=== PATIENT | male | born 1935 | race Hispanic/Latino ===

== ENCOUNTER 2018-03-24 12:44 | Inpatient (IN) | payer MEDICARE ==
[~2018-03-24] VITALS: Ht 165.1 cm; Wt 83.9 kg
[2018-03-24] MEDS ORDERED: HYDROCORTISONE 2.5% CREAM 30GM TUBE TOP ONE (14:00)
[2018-03-24] MEDS ORDERED: SODIUM CHLORIDE 0.9% 1000ML 1,000 ML IV ONE (14:00)
[2018-03-24] MEDS ORDERED: DEXAMETHASONE SOD PHOS 10 MG/1 ML VIAL IV ONE (14:15)
[2018-03-24 14:24] LABS: BASOPHILS % 0.3 % (0.0-1.0); EOSINOPHILS % 0.5 % (0.0-6.0); HEMATOCRIT 38.4 % (38.2-49.6); HEMOGLOBIN 13.3 g/dL (14.0-18.0); LYMPHOCYTES # (AUTO) 1.2 (1.0-3.2); LYMPHOCYTES % 13.8 % (18.0-39.1); MEAN CORPUSCULAR HEMOGLOBIN 33.3 pg (28-32); MEAN CORPUSCULAR HGB CONC 34.6 g/dL (31-35); MONOCYTES # (AUTO) 0.7 (0.2-0.8); NEUTROPHILS # (AUTO) 6.7 (2.1-6.9); NEUTROPHILS % 76.9 % (38.7-80.0); PLATELET COUNT 127 x10e3/uL (140-360); RED CELL DISTRIBUTION WIDTH 13.1 % (11.7-14.4)
[2018-03-24 14:26] LABS: CLARITY,URINE SL CLOUDY (CLEAR); COLOR,URINE YELLOW (YELLOW); KETONES,URINE NEGATIVE (NEGATIVE); LEUKOCYTE ESTERASE ,URINE NEGATIVE (NEGATIVE); NITRITE,URINE NEGATIVE (NEGATIVE); PROTEIN,URINE DIPSTICK NEGATIVE (NEGATIVE); URINE UROBILINOGEN 0.2 mg/dL (0.2 - 1)
[2018-03-24 14:27] LABS: BILIRUBIN,URINE NEGATIVE (NEGATIVE)
[2018-03-24 14:38] LABS: ALBUMIN 3.6 g/dL (3.5-5.0); ALBUMIN/GLOBULIN RATIO 1.2 (0.8-2.0); ANION GAP 13.2 mmol/L (8-16); CALCIUM 8.8 mg/dL (8.4-10.2); CREATININE, SERUM 1.76 mg/dL (0.72-1.25)
[2018-03-24 14:45] LABS: POTASSIUM 5.2 mmol/L (3.5-5.1)
[2018-03-24 14:45] LABS: EPITHELIAL CELLS,URINE RARE /LPF
[2018-03-24] MEDS ORDERED: LIDOCAINE JELLY 2% 10ML URO-JET ONE (16:08)
[2018-03-24] MEDS ORDERED: LIDOCAINE JELLY 2% 10ML URO-JET TOP ONE (16:15)
[2018-03-24] MEDS ORDERED: SODIUM CHLORIDE FLUSH 10 ML SYR INJ PRN (16:45)
[2018-03-24] MEDS ORDERED: METOCLOPRAMIDE HCL 10 MG/2ML VIAL IV PRN (16:45)
[2018-03-24 18:10] VITALS: BP 132/62
[2018-03-24 18:28] VITALS: BP 132/62
[2018-03-24] MEDS: VANCOMYCIN 1GM/NS 250 ML 250 ML IV SCH (18:35)
[2018-03-24 18:38] VITALS: BP 132/62
[2018-03-24] MEDS: CIPROFLOXACIN 400 MG/D5W 200ML 200 ML IV SCH (19:00)
[2018-03-24] MEDS ORDERED: PENTOXIFYLLINE400 MG PO ×2 (19:12→19:22)
[2018-03-24] MEDS ORDERED: LEVOXYL200 MCG PO (19:12)
[2018-03-24] MEDS ORDERED: LISINOPRIL40 MG PO (19:12)
[2018-03-24] MEDS ORDERED: FISH OIL 1,0001 EAC2 PO (19:16)
[2018-03-24] MEDS ORDERED: CENTRUM COMPLE1 EACH PO (19:16)
[2018-03-24] MEDS ORDERED: ASPIR 8181 MG PO (19:16)
[2018-03-24] MEDS ORDERED: AMLODIPINE BES2.5 MG PO (19:16)
[2018-03-24] MEDS ORDERED: ATORVASTATIN CA10 MG PO (19:16)
[2018-03-24] MEDS ORDERED: LORAZEPAM0.5 MG PO (19:16)
[2018-03-24] MEDS ORDERED: CETIRIZINE HCL10 MG PO (19:16)
[2018-03-24] MEDS ORDERED: FAMOTIDINE20 MG PO (19:22)
[2018-03-24] MEDS ORDERED: FINASTERIDE5 MG PO (19:22)
[2018-03-24] MEDS ORDERED: SYMBICORT 16010.2 GM INH (19:22)
[2018-03-24] MEDS ORDERED: MIRTAZAPINE15 MG PO (19:22)
[2018-03-24] MEDS ORDERED: GABAPENTIN100 MG PO (19:22)
[2018-03-24] MEDS ORDERED: TAMSULOSIN HCL0.4 MG PO (19:22)
[2018-03-24 20:00] VITALS: BP 125/58
[2018-03-24 20:25] VITALS: BP 125/58
[2018-03-24] MEDS ORDERED: GABAPENTIN 100 MG CAP PO PRN (20:45)
[2018-03-24] MEDS ORDERED: LORAZEPAM 0.5 MG TAB PO PRN (20:45)
[2018-03-24] MEDS ORDERED: ACETAMINOPHEN 325 MG TAB PO PRN (20:45)
[2018-03-24] MEDS: ATORVASTATIN 10 MG TAB PO SCH (22:36)
[2018-03-24] MEDS: SODIUM CHLORIDE 1 GM TAB PO SCH (22:36)
[2018-03-25] VITALS (7 sets, daily range): BP systolic 114–161; BP diastolic 56–74
[2018-03-25 04:46] LABS: HEMOGLOBIN 12.6 g/dL (14.0-18.0); LYMPHOCYTES # (AUTO) 0.5 (1.0-3.2); LYMPHOCYTES % 10.3 % (18.0-39.1); MEAN CORPUSCULAR HEMOGLOBIN 32.9 pg (28-32); MEAN CORPUSCULAR HGB CONC 34.1 g/dL (31-35); MEAN CORPUSCULAR VOLUME 96.6 fL (81-99); MONOCYTES % 0.8 % (4.4-11.3); NEUTROPHILS # (AUTO) 4.7 (2.1-6.9); NEUTROPHILS % 88.5 % (38.7-80.0); PLATELET COUNT 115 x10e3/uL (140-360); RED BLOOD COUNT 3.83 x10e6/uL (4.3-5.7); RED CELL DISTRIBUTION WIDTH 13.1 % (11.7-14.4)
[2018-03-25] MEDS ORDERED: SODIUM CHLORIDE 0.9% 250ML 250 ML ONE (05:04)
[2018-03-25 05:13] LABS: ANION GAP 13.5 mmol/L (8-16); CALCIUM 8.7 mg/dL (8.4-10.2); CHOL/HDL RATIO 2.1 (3.9-4.7); CREATININE, SERUM 1.32 mg/dL (0.72-1.25); MAGNESIUM 1.9 MG/DL (1.3-2.1); POTASSIUM 5.5 mmol/L (3.5-5.1)
[2018-03-25 05:15] LABS: B-TYPE NATRIURETIC PEPTIDE2 86.2 pg/mL (0-100)
[2018-03-25 05:35] LABS: FREE T4 (FREE THYROXINE) 0.85 ng/dL (0.9-1.8); THYROID STIMULATING HORMONE 0.788 uIU/mL (0.350-4.940)
[2018-03-25] MEDS: VANCOMYCIN 1GM/NS 250 ML 250 ML IV SCH ×2 (05:40→17:12)
[2018-03-25] MEDS: LEVOTHYROXINE SODIUM 100 MCG TAB PO SCH (05:40)
[2018-03-25] MEDS: FAMOTIDINE 20 MG TAB PO SCH (08:31)
[2018-03-25] MEDS: SODIUM CHLORIDE 1 GM TAB PO SCH (08:31)
[2018-03-25] MEDS: TAMSULOSIN HCL 0.4 MG CAP PO SCH (08:31)
[2018-03-25] MEDS: PENTOXIFYLLINE 400 MG TAB CR PO SCH ×2 (08:31→17:12)
[2018-03-25] MEDS: FINASTERIDE 5 MG TAB PO SCH (08:31)
[2018-03-25] MEDS: AMLODIPINE BESYLATE 5 MG TAB PO SCH (08:32)
[2018-03-25] MEDS ORDERED: NON-FORMULARY MEDICATION (Amlodipine Besylate 1 TAB) PO SCH (09:00)
[2018-03-25] MEDS ORDERED: SOD POLYSTYRENE SULFONATE SUSP 15 GM/60 ML BTL PO ONE (09:00)
[2018-03-25] MEDS ORDERED: KETOCONAZOLE 2% CREAM/15 GM TUBE TOP ONE (09:00)
[2018-03-25] MEDS ORDERED: MIRTAZAPINE 15 MG TAB PO SCH (09:00)
[2018-03-25] MEDS ORDERED: LEVOTHYROXINE SODIUM PO SCH (09:00)
[2018-03-25] MEDS ORDERED: SODIUM CHLORIDE 0.9% 1000ML 1,000 ML IV ONE (09:45)
[2018-03-25] MEDS ORDERED: SODIUM CHLORIDE 0.9% 1000ML 1,000 ML ONE (13:57)
[2018-03-25] MEDS: MUPIROCIN 2% OINT 22 GM TUBE TOP SCH (14:41)
[2018-03-25] MEDS ORDERED: MUPIROCIN 2% OINT 22 GM TUBE TOP SCH (17:00)
[2018-03-25] MEDS: CIPROFLOXACIN 400 MG/D5W 200ML 200 ML IV SCH (17:11)
[2018-03-25] MEDS: MIRTAZAPINE 15 MG TAB PO SCH (21:05)
[2018-03-25] MEDS: ATORVASTATIN 10 MG TAB PO SCH (21:05)
[2018-03-26] VITALS (7 sets, daily range): BP systolic 129–176; BP diastolic 60–77
[2018-03-26 04:49] LABS: HEMATOCRIT 35.7 % (38.2-49.6); HEMOGLOBIN 12.5 g/dL (14.0-18.0); LYMPHOCYTES # (AUTO) 0.9 (1.0-3.2); LYMPHOCYTES % 11.3 % (18.0-39.1); MEAN CORPUSCULAR HEMOGLOBIN 33.5 pg (28-32); MEAN CORPUSCULAR VOLUME 95.7 fL (81-99); MONOCYTES # (AUTO) 0.5 (0.2-0.8); MONOCYTES % 6.2 % (4.4-11.3); NEUTROPHILS # (AUTO) 6.5 (2.1-6.9); NEUTROPHILS % 82.2 % (38.7-80.0); PLATELET COUNT 122 x10e3/uL (140-360); RED BLOOD COUNT 3.73 x10e6/uL (4.3-5.7); RED CELL DISTRIBUTION WIDTH 13.2 % (11.7-14.4)
[2018-03-26 05:06] LABS: ANION GAP 12.4 mmol/L (8-16); BLOOD UREA NITROGEN 31 mg/dL (7-26); BUN/CREATININE RATIO 27 (6-25); CALCIUM 8.8 mg/dL (8.4-10.2); CARBON DIOXIDE 23 mmol/L (22-29); CHLORIDE 103 mmol/L (98-107); CREATININE, SERUM 1.13 mg/dL (0.72-1.25); EST GLOMERULAR FILTRATION RATE > 60 ML/MIN (60-); GLUCOSE 140 mg/dL (74-118); MAGNESIUM 1.7 MG/DL (1.3-2.1); POTASSIUM 4.4 mmol/L (3.5-5.1); SODIUM 134 mmol/L (136-145)
[2018-03-26] MEDS: VANCOMYCIN 1GM/NS 250 ML 250 ML IV SCH (05:30)
[2018-03-26] MEDS: LEVOTHYROXINE SODIUM 100 MCG TAB PO SCH (05:59)
[2018-03-26] MEDS: TAMSULOSIN HCL 0.4 MG CAP PO SCH (08:19)
[2018-03-26] MEDS: AMLODIPINE BESYLATE 5 MG TAB PO SCH (08:19)
[2018-03-26] MEDS: FINASTERIDE 5 MG TAB PO SCH (08:19)
[2018-03-26] MEDS: PENTOXIFYLLINE 400 MG TAB CR PO SCH ×2 (08:19→18:28)
[2018-03-26] MEDS: FAMOTIDINE 20 MG TAB PO SCH (08:19)
[2018-03-26] MEDS: HYDROCODONE/APAP 5MG-325MG TAB PO PRN ×2 (08:20→18:00)
[2018-03-26] MEDS: CEFTRIAXONE SOD 1 GM VIAL IV SCH (12:27)
[2018-03-26] MEDS: MUPIROCIN 2% OINT 22 GM TUBE TOP SCH ×2 (12:27→18:29)
[2018-03-26] MEDS ORDERED: BISACODYL 5 MG TAB EC PO PRN (13:30)
[2018-03-26] MEDS: POLYETHYLENE GLYCOL 3350 17 GM PACK PO SCH (18:29)
[2018-03-26] MEDS: DOCUSATE SODIUM 100 MG CAP PO SCH (18:29)
[2018-03-26] MEDS: ATORVASTATIN 10 MG TAB PO SCH (21:05)
[2018-03-26] MEDS: MIRTAZAPINE 15 MG TAB PO SCH (21:05)
[2018-03-27] VITALS (9 sets, daily range): BP systolic 132–180; BP diastolic 60–87
[2018-03-27 03:15] LABS: BASOPHILS % 0.2 % (0.0-1.0); EOSINOPHILS # (AUTO) 0.1 (0.0-0.4); EOSINOPHILS % 0.9 % (0.0-6.0); HEMATOCRIT 37.2 % (38.2-49.6); HEMOGLOBIN 12.7 g/dL (14.0-18.0); LYMPHOCYTES # (AUTO) 1.9 (1.0-3.2); LYMPHOCYTES % 29.3 % (18.0-39.1); MEAN CORPUSCULAR HEMOGLOBIN 32.8 pg (28-32); MEAN CORPUSCULAR HGB CONC 34.1 g/dL (31-35); MEAN CORPUSCULAR VOLUME 96.1 fL (81-99); MONOCYTES # (AUTO) 0.5 (0.2-0.8); MONOCYTES % 8.2 % (4.4-11.3); NEUTROPHILS % 61.1 % (38.7-80.0); PLATELET COUNT 112 x10e3/uL (140-360); RED BLOOD COUNT 3.87 x10e6/uL (4.3-5.7); RED CELL DISTRIBUTION WIDTH 13.2 % (11.7-14.4)
[2018-03-27 03:34] LABS: ANION GAP 10.3 mmol/L (8-16); BLOOD UREA NITROGEN 29 mg/dL (7-26); BUN/CREATININE RATIO 26 (6-25); CALCIUM 8.7 mg/dL (8.4-10.2); CARBON DIOXIDE 26 mmol/L (22-29); CHLORIDE 103 mmol/L (98-107); CREATININE, SERUM 1.12 mg/dL (0.72-1.25); EST GLOMERULAR FILTRATION RATE > 60 ML/MIN (60-); GLUCOSE 113 mg/dL (74-118); MAGNESIUM 1.7 MG/DL (1.3-2.1); POTASSIUM 4.3 mmol/L (3.5-5.1); SODIUM 135 mmol/L (136-145)
[2018-03-27] MEDS: LEVOTHYROXINE SODIUM 100 MCG TAB PO SCH (06:00)
[2018-03-27] MEDS: POLYETHYLENE GLYCOL 3350 17 GM PACK PO SCH ×2 (09:00→17:00)
[2018-03-27] MEDS: DOCUSATE SODIUM 100 MG CAP PO SCH ×2 (09:00→17:00)
[2018-03-27] MEDS: FAMOTIDINE 20 MG TAB PO SCH (09:00)
[2018-03-27] MEDS: TAMSULOSIN HCL 0.4 MG CAP PO SCH (09:00)
[2018-03-27] MEDS: PENTOXIFYLLINE 400 MG TAB CR PO SCH ×2 (09:00→12:05)
[2018-03-27] MEDS: FINASTERIDE 5 MG TAB PO SCH (09:00)
[2018-03-27] MEDS: MUPIROCIN 2% OINT 22 GM TUBE TOP SCH ×2 (09:00→17:00)
[2018-03-27] MEDS: AMLODIPINE BESYLATE 10 MG TAB PO SCH (11:15)
[2018-03-27] MEDS: CEFTRIAXONE SOD 1 GM VIAL IV SCH (11:30)
[2018-03-27] MEDS: HYDROCODONE/APAP 5MG-325MG TAB PO PRN (15:23)
[2018-03-27] MEDS: ATORVASTATIN 10 MG TAB PO SCH (21:34)
[2018-03-27] MEDS: MIRTAZAPINE 15 MG TAB PO SCH (21:34)
[2018-03-28] VITALS (8 sets, daily range): BP systolic 136–181; BP diastolic 65–83
[2018-03-28 05:56] LABS: BASOPHILS % 0.3 % (0.0-1.0); EOSINOPHILS # (AUTO) 0.1 (0.0-0.4); EOSINOPHILS % 1.9 % (0.0-6.0); HEMATOCRIT 39.1 % (38.2-49.6); LYMPHOCYTES # (AUTO) 1.6 (1.0-3.2); LYMPHOCYTES % 27.2 % (18.0-39.1); MEAN CORPUSCULAR HEMOGLOBIN 32.7 pg (28-32); MEAN CORPUSCULAR HGB CONC 33.2 g/dL (31-35); MEAN CORPUSCULAR VOLUME 98.5 fL (81-99); MONOCYTES # (AUTO) 0.5 (0.2-0.8); MONOCYTES % 8.5 % (4.4-11.3); NEUTROPHILS # (AUTO) 3.6 (2.1-6.9); NEUTROPHILS % 61.8 % (38.7-80.0); PLATELET COUNT 120 x10e3/uL (140-360); RED BLOOD COUNT 3.97 x10e6/uL (4.3-5.7); RED CELL DISTRIBUTION WIDTH 13.1 % (11.7-14.4)
[2018-03-28 06:23] LABS: ANION GAP 11.2 mmol/L (8-16); BLOOD UREA NITROGEN 21 mg/dL (7-26); BUN/CREATININE RATIO 21 (6-25); CALCIUM 8.8 mg/dL (8.4-10.2); CARBON DIOXIDE 31 mmol/L (22-29); CHLORIDE 100 mmol/L (98-107); CREATININE, SERUM 0.99 mg/dL (0.72-1.25); EST GLOMERULAR FILTRATION RATE > 60 ML/MIN (60-); GLUCOSE 105 mg/dL (74-118); MAGNESIUM 1.6 MG/DL (1.3-2.1); POTASSIUM 4.2 mmol/L (3.5-5.1); SODIUM 138 mmol/L (136-145)
[2018-03-28] MEDS: LEVOTHYROXINE SODIUM 100 MCG TAB PO SCH (06:32)
[2018-03-28] MEDS ORDERED: AMLODIPINE BESYLATE 10 MG TAB PO SCH (09:00)
[2018-03-28] MEDS: MUPIROCIN 2% OINT 22 GM TUBE TOP SCH ×3 (09:00→21:36)
[2018-03-28] MEDS: FAMOTIDINE 20 MG TAB PO SCH (09:39)
[2018-03-28] MEDS: TAMSULOSIN HCL 0.4 MG CAP PO SCH (09:39)
[2018-03-28] MEDS: AMLODIPINE BESYLATE 10 MG TAB PO SCH (09:39)
[2018-03-28] MEDS: FINASTERIDE 5 MG TAB PO SCH (09:39)
[2018-03-28] MEDS: DOCUSATE SODIUM 100 MG CAP PO SCH ×2 (09:39→17:14)
[2018-03-28] MEDS: POLYETHYLENE GLYCOL 3350 17 GM PACK PO SCH ×2 (09:39→17:14)
[2018-03-28] MEDS: PENTOXIFYLLINE 400 MG TAB CR PO SCH ×2 (09:39→17:14)
[2018-03-28] MEDS: CEFTRIAXONE SOD 1 GM VIAL IV SCH (13:00)
[2018-03-28] MEDS: NIFEDIPINE CR 30 MG TAB PO SCH (17:13)
[2018-03-28] MEDS ORDERED: CEFEPIME HCL 2 GM VIAL IV SCH (18:00)
[2018-03-28] MEDS: CEFEPIME HCL 2 GM VIAL IV SCH (19:58)
[2018-03-28] MEDS ORDERED: VANCOMYCIN 1GM/NS 250 ML 250 ML IV SCH (20:00)
[2018-03-28] MEDS: MIRTAZAPINE 15 MG TAB PO SCH (21:36)
[2018-03-28] MEDS: VANCOMYCIN 1GM/NS 250 ML 250 ML IV SCH (21:36)
[2018-03-28] MEDS: ATORVASTATIN 10 MG TAB PO SCH (21:36)
[2018-03-29] VITALS (7 sets, daily range): BP systolic 120–161; BP diastolic 59–97
--- NOTE | 2018-03-29 01:20 | Consultation ---
DATE OF CONSULTATION: March 29, 2018 REASON FOR CONSULTATION: Cellulitis, infection of the genital area of the penis. HISTORY OF PRESENT ILLNESS: This patient who is an 83-year-old who has history of diabetes mellitus. The patient started to have redness and swelling of the genital area. He went to see his physician, given oral antibiotic without any improvement. Patient was sent to the emergency room. He was given a shot and then oral antibiotic without any improvement. Patient went to see his PCP, and apparently he was getting progressively worse, so patient is being admitted. The patient is complaining of pain in the area. PAST MEDICAL HISTORY: Significant for diabetes mellitus. PAST SURGICAL HISTORY: Denies. ALLERGIES: NKA. SOCIAL HISTORY: There is no smoking, drug abuse, alcohol abuse. FAMILY HISTORY: Unremarkable. REVIEW OF SYSTEMS: HEENT: Negative. PULMONARY: Negative. CARDIAC: Negative. : Negative. SKIN: There is no rash. LABORATORY DATA: Reviewed. His cultures from the penis showed Pseudomonas on March 24. Blood cultures are negative. His white count 5.8, hemoglobin is 13. Sodium 135, potassium 4.3, creatinine 1.2. IMPRESSION: 1. Cellulitis of the penis. Agree with cefepime, agree with vancomycin. Consider urology evaluation. 2. Diabetes mellitus. 3. Will follow with you. Thank you Job#: [id number]
[2018-03-29 04:42] LABS: BASOPHILS % 0.3 % (0.0-1.0); EOSINOPHILS # (AUTO) 0.1 (0.0-0.4); EOSINOPHILS % 1.8 % (0.0-6.0); HEMATOCRIT 37.8 % (38.2-49.6); HEMOGLOBIN 12.7 g/dL (14.0-18.0); LYMPHOCYTES # (AUTO) 1.2 (1.0-3.2); LYMPHOCYTES % 20.4 % (18.0-39.1); MEAN CORPUSCULAR HEMOGLOBIN 32.8 pg (28-32); MEAN CORPUSCULAR HGB CONC 33.6 g/dL (31-35); MEAN CORPUSCULAR VOLUME 97.7 fL (81-99); MONOCYTES # (AUTO) 0.5 (0.2-0.8); MONOCYTES % 7.9 % (4.4-11.3); NEUTROPHILS # (AUTO) 4.2 (2.1-6.9); NEUTROPHILS % 69.3 % (38.7-80.0); PLATELET COUNT 115 x10e3/uL (140-360); RED BLOOD COUNT 3.87 x10e6/uL (4.3-5.7)
[2018-03-29 05:04] LABS: BLOOD UREA NITROGEN 22 mg/dL (7-26); BUN/CREATININE RATIO 24 (6-25); CALCIUM 8.7 mg/dL (8.4-10.2); CARBON DIOXIDE 28 mmol/L (22-29); CHLORIDE 101 mmol/L (98-107); CREATININE, SERUM 0.92 mg/dL (0.72-1.25); EST GLOMERULAR FILTRATION RATE > 60 ML/MIN (60-); GLUCOSE 118 mg/dL (74-118); MAGNESIUM 1.7 MG/DL (1.3-2.1); SODIUM 136 mmol/L (136-145)
[2018-03-29] MEDS: LEVOTHYROXINE SODIUM 100 MCG TAB PO SCH (06:33)
[2018-03-29] MEDS: CEFEPIME HCL 2 GM VIAL IV SCH ×2 (08:00→21:25)
[2018-03-29] MEDS: MUPIROCIN 2% OINT 22 GM TUBE TOP SCH ×2 (09:00→17:00)
[2018-03-29] MEDS: TAMSULOSIN HCL 0.4 MG CAP PO SCH (09:00)
[2018-03-29] MEDS: FAMOTIDINE 20 MG TAB PO SCH (09:00)
[2018-03-29] MEDS: FINASTERIDE 5 MG TAB PO SCH (09:00)
[2018-03-29] MEDS: POLYETHYLENE GLYCOL 3350 17 GM PACK PO SCH ×2 (09:00→17:00)
[2018-03-29] MEDS: PENTOXIFYLLINE 400 MG TAB CR PO SCH ×2 (09:00→17:00)
[2018-03-29] MEDS: DOCUSATE SODIUM 100 MG CAP PO SCH ×2 (09:00→17:00)
[2018-03-29] MEDS: VANCOMYCIN 1GM/NS 250 ML 250 ML IV SCH ×2 (09:00→21:25)
[2018-03-29] MEDS: NIFEDIPINE CR 30 MG TAB PO SCH (09:00)
[2018-03-29] MEDS: MIRTAZAPINE 15 MG TAB PO SCH (21:25)
[2018-03-29] MEDS: ATORVASTATIN 10 MG TAB PO SCH (21:25)
[2018-03-30] MEDS: LEVOTHYROXINE SODIUM 100 MCG TAB PO SCH (05:20)
[2018-03-30 05:21] VITALS: BP 136/64
[2018-03-30 05:21] LABS: BASOPHILS % 0.5 % (0.0-1.0); EOSINOPHILS # (AUTO) 0.1 (0.0-0.4); HEMATOCRIT 38.3 % (38.2-49.6); HEMOGLOBIN 12.8 g/dL (14.0-18.0); LYMPHOCYTES # (AUTO) 1.2 (1.0-3.2); LYMPHOCYTES % 19.6 % (18.0-39.1); MEAN CORPUSCULAR HEMOGLOBIN 32.6 pg (28-32); MEAN CORPUSCULAR HGB CONC 33.4 g/dL (31-35); MEAN CORPUSCULAR VOLUME 97.5 fL (81-99); MONOCYTES # (AUTO) 0.4 (0.2-0.8); MONOCYTES % 7.4 % (4.4-11.3); NEUTROPHILS # (AUTO) 4.2 (2.1-6.9); PLATELET COUNT 111 x10e3/uL (140-360); RED BLOOD COUNT 3.93 x10e6/uL (4.3-5.7); RED CELL DISTRIBUTION WIDTH 12.9 % (11.7-14.4)
[2018-03-30 06:02] LABS: BLOOD UREA NITROGEN 17 mg/dL (7-26); BUN/CREATININE RATIO 15 (6-25); CALCIUM 8.7 mg/dL (8.4-10.2); CARBON DIOXIDE 27 mmol/L (22-29); CHLORIDE 103 mmol/L (98-107); CREATININE, SERUM 1.15 mg/dL (0.72-1.25); EST GLOMERULAR FILTRATION RATE > 60 ML/MIN (60-); GLUCOSE 137 mg/dL (74-118); MAGNESIUM 1.9 MG/DL (1.3-2.1); SODIUM 138 mmol/L (136-145)
[2018-03-30] MEDS: CEFEPIME HCL 2 GM VIAL IV SCH ×2 (08:00→21:04)
[2018-03-30 08:11] VITALS: BP 132/68
[2018-03-30] MEDS: PENTOXIFYLLINE 400 MG TAB CR PO SCH ×2 (09:00→17:00)
[2018-03-30] MEDS: FAMOTIDINE 20 MG TAB PO SCH (09:00)
[2018-03-30] MEDS: TAMSULOSIN HCL 0.4 MG CAP PO SCH (09:00)
[2018-03-30] MEDS: FINASTERIDE 5 MG TAB PO SCH (09:00)
[2018-03-30] MEDS: NIFEDIPINE CR 30 MG TAB PO SCH (09:00)
[2018-03-30] MEDS: DOCUSATE SODIUM 100 MG CAP PO SCH ×2 (09:00→17:00)
[2018-03-30] MEDS: MUPIROCIN 2% OINT 22 GM TUBE TOP SCH ×2 (09:00→17:00)
[2018-03-30] MEDS: POLYETHYLENE GLYCOL 3350 17 GM PACK PO SCH ×2 (09:00→17:00)
[2018-03-30] MEDS: CIPROFLOXACIN 400 MG/D5W 200ML 200 ML IV SCH (11:30)
--- NOTE | 2018-03-30 11:56 | Progress Note ---
DATE: March 30, 2018 Mr. Enamorado is feeling slightly better; however, the penis is still quite edematous and quite erythematous. There is small area of ulcer noted at the tip of the penis. The urine is showing Pseudomonas aeruginosa, which was resistant only to Azactam. His blood pressures are negative. His white count is 5.98 and hemoglobin is 12.8. His sodium 138, potassium 4.0, creatinine of 1.15. He is currently on Cefepime 2 g q.12 and vancomycin. PHYSICAL EXAMINATION GENERAL: He is currently alert, oriented, does not seem to be in acute distress. VITALS: Stable. Currently afebrile. HEENT: Not icteric. NECK: Supple. CHEST: Clear. COR: Normal. ABDOMEN: Soft. Bowel sounds present. No tenderness. EXTREMITIES: No edema. SKIN: The penis with still edema and erythema. IMPRESSION 1. Penis cellulitis, very slow progress, growing Pseudomonas. Continue with Cefepime. Will add Cipro. I am going to reduce the vancomycin dose to 1 g q.24 hours. He probably would need to be on IV antibiotic for 2 to 3 weeks. Depending on his clinical progress, I think an LTAC would be appropriate. 2. Acute tubular necrosis/chronic kidney disease. Will keep an eye on it. Will follow with you. Job#: [id number] TARUN
[2018-03-30 12:00] VITALS: BP 139/63
[2018-03-30] MEDS ORDERED: SODIUM CHLORIDE 0.9% 250ML 250 ML ONE (12:18)
[2018-03-30 16:14] VITALS: BP 154/67
[2018-03-30 20:02] VITALS: BP 155/73
[2018-03-30] MEDS: MIRTAZAPINE 15 MG TAB PO SCH (22:19)
[2018-03-30] MEDS: ATORVASTATIN 10 MG TAB PO SCH (22:19)
[2018-03-30] MEDS: VANCOMYCIN 1GM/NS 250 ML 250 ML IV SCH (22:38)
[2018-03-30 23:50] VITALS: BP 148/65
[2018-03-31] MEDS: CIPROFLOXACIN 400 MG/D5W 200ML 200 ML IV SCH ×3 (00:17→22:51)
[2018-03-31 05:05] LABS: BASOPHILS % 0.5 % (0.0-1.0); EOSINOPHILS # (AUTO) 0.1 (0.0-0.4); EOSINOPHILS % 1.6 % (0.0-6.0); HEMATOCRIT 37.5 % (38.2-49.6); HEMOGLOBIN 12.3 g/dL (14.0-18.0); LYMPHOCYTES % 18.6 % (18.0-39.1); MEAN CORPUSCULAR HEMOGLOBIN 32.2 pg (28-32); MEAN CORPUSCULAR HGB CONC 32.8 g/dL (31-35); MEAN CORPUSCULAR VOLUME 98.2 fL (81-99); MONOCYTES # (AUTO) 0.5 (0.2-0.8); MONOCYTES % 8.9 % (4.4-11.3); NEUTROPHILS # (AUTO) 3.9 (2.1-6.9); NEUTROPHILS % 69.9 % (38.7-80.0); PLATELET COUNT 120 x10e3/uL (140-360); RED BLOOD COUNT 3.82 x10e6/uL (4.3-5.7); RED CELL DISTRIBUTION WIDTH 13.1 % (11.7-14.4)
[2018-03-31] MEDS: LEVOTHYROXINE SODIUM 100 MCG TAB PO SCH (05:26)
[2018-03-31 05:27] LABS: BLOOD UREA NITROGEN 18 mg/dL (7-26); BUN/CREATININE RATIO 20 (6-25); CALCIUM 8.5 mg/dL (8.4-10.2); CARBON DIOXIDE 26 mmol/L (22-29); CHLORIDE 104 mmol/L (98-107); CREATININE, SERUM 0.92 mg/dL (0.72-1.25); EST GLOMERULAR FILTRATION RATE > 60 ML/MIN (60-); GLUCOSE 120 mg/dL (74-118); MAGNESIUM 1.7 MG/DL (1.3-2.1); SODIUM 138 mmol/L (136-145)
[2018-03-31 06:11] VITALS: BP 161/72
[2018-03-31 08:00] VITALS: BP 144/70
[2018-03-31] MEDS: CEFEPIME HCL 2 GM VIAL IV SCH ×2 (08:00→20:22)
[2018-03-31] MEDS: MUPIROCIN 2% OINT 22 GM TUBE TOP SCH ×2 (09:23→17:00)
[2018-03-31] MEDS: FAMOTIDINE 20 MG TAB PO SCH (09:52)
[2018-03-31] MEDS: TAMSULOSIN HCL 0.4 MG CAP PO SCH (09:52)
[2018-03-31] MEDS: DOCUSATE SODIUM 100 MG CAP PO SCH ×2 (09:52→17:10)
[2018-03-31] MEDS: FINASTERIDE 5 MG TAB PO SCH (09:52)
[2018-03-31] MEDS: POLYETHYLENE GLYCOL 3350 17 GM PACK PO SCH ×2 (09:52→17:00)
[2018-03-31] MEDS: PENTOXIFYLLINE 400 MG TAB CR PO SCH ×2 (09:52→17:00)
[2018-03-31] MEDS: NIFEDIPINE CR 30 MG TAB PO SCH (09:53)
[2018-03-31 12:00] VITALS: BP 142/69
[2018-03-31 16:00] VITALS: BP 154/73
[2018-03-31 20:00] VITALS: BP 132/60
[2018-03-31] MEDS: MIRTAZAPINE 15 MG TAB PO SCH (20:22)
[2018-03-31] MEDS: ATORVASTATIN 10 MG TAB PO SCH (20:22)
[2018-03-31] MEDS: VANCOMYCIN 1GM/NS 250 ML 250 ML IV SCH (20:22)
[2018-04-01] VITALS: BP 152/67
[2018-04-01 04:00] VITALS: BP 136/65
[2018-04-01] MEDS: LEVOTHYROXINE SODIUM 100 MCG TAB PO SCH (06:04)
[2018-04-01 08:00] VITALS: BP 146/67
[2018-04-01] MEDS: MUPIROCIN 2% OINT 22 GM TUBE TOP SCH ×2 (09:04→18:16)
[2018-04-01] MEDS: DOCUSATE SODIUM 100 MG CAP PO SCH ×2 (09:04→18:16)
[2018-04-01] MEDS: FINASTERIDE 5 MG TAB PO SCH (09:04)
[2018-04-01] MEDS: PENTOXIFYLLINE 400 MG TAB CR PO SCH ×2 (09:04→18:16)
[2018-04-01] MEDS: TAMSULOSIN HCL 0.4 MG CAP PO SCH (09:04)
[2018-04-01] MEDS: FAMOTIDINE 20 MG TAB PO SCH (09:04)
[2018-04-01] MEDS: POLYETHYLENE GLYCOL 3350 17 GM PACK PO SCH ×2 (09:04→18:16)
[2018-04-01] MEDS: CEFEPIME HCL 2 GM VIAL IV SCH (09:04)
[2018-04-01] MEDS: NIFEDIPINE CR 30 MG TAB PO SCH (09:05)
[2018-04-01] MEDS: CIPROFLOXACIN 400 MG/D5W 200ML 200 ML IV SCH (11:30)
[2018-04-01 12:00] VITALS: BP 144/67
[2018-04-01 16:00] VITALS: BP 127/58
--- NOTE | 2018-04-06 11:30 | Discharge Summary ---
ADMITTING DIAGNOSES 1. Erosive balanitis plus penile cellulitis. 2. BPH. 3. Hypertension. 4. Hyperlipidemia. 5. Hyperkalemia. 6. Hypothyroidism. 7. Hyponatremia. DISCHARGE DIAGNOSES 1. Erosive balanitis plus penile cellulitis. 2. BPH. 3. Hypertension. 4. Hyperlipidemia. 5. Hyperkalemia. 6. Hypothyroidism. 7. Hyponatremia. HISTORY: Patient has a history of hypertension, hyperlipidemia, BPH, hypothyroidism, anxiety, intermittent claudication, neuropathy, and seasonal allergies. Surgical history of left neck tumor, right lower extremity stent in 2010, and left carotid endarterectomy. HOSPITAL COURSE: An 83-year-old male who complains of penile foreskin irritation that began 3 weeks ago. He describes it as a rash that has spread over time. He denies fever, dysuria and drainage. Patient admits to changing body wash about 3 weeks ago. He showers daily and dries the area as well. On admission, patient was started on Cipro and vancomycin. Urology consulted who ordered a Eduardo. ID was also consulted. Patient started on home medications for all other medical issues. Blood cultures were negative. Urine culture was negative. HSV was negative. Wound culture showed Pseudomonas putida. Per ID, patient was switched to IV cefepime 2 g daily. Patient was initially trying to get into LTAC which was denied and then [facility] was pending. Nurses decided to discharge the patient without a discharge order and did not inform me of discharge. So, patient was discharged to [facility] where antibiotics had to be changed the next day via getting hold of Dr. Cazares's FASHION JOURNALIST at the alf. At time of discharge, vital signs were stable. Patient afebrile. Family and patient understood plan prior to discharge and agreed to transfer. Dictated by Lenka Castle NP AVTAR CAZARES MD Job#: [id number] CF
== END 2018-04-01 20:19 | DRG 727 ==
LOC: ER 12:44 → ERHOLD 17:01 → MED/SURG2 17:52
PROVIDERS: ADMIT Internal Medicine; ATTEND Internal Medicine
DX: N48.1 Balanitis (principal); N17.0 Acute kidney failure with tubular necrosis; E87.1 Hypo-osmolality and hyponatremia; E86.0 Dehydration; N40.0 Benign prostatic hyperplasia without lower urinary tract symptoms; E03.9 Hypothyroidism, unspecified; E78.5 Hyperlipidemia, unspecified; E87.5 Hyperkalemia; F41.9 Anxiety disorder, unspecified; E11.42 Type 2 diabetes mellitus with diabetic polyneuropathy; Z79.4 Long term (current) use of insulin; B96.5 Pseudomonas (aeruginosa) (mallei) (pseudomallei) as the cause of diseases classified elsewhere; Z16.29 Resistance to other single specified antibiotic; E11.22 Type 2 diabetes mellitus with diabetic chronic kidney disease; I12.9 Hypertensive chronic kidney disease with stage 1 through stage 4 chronic kidney disease, or unspecified chronic kidney disease; N18.9 Chronic kidney disease, unspecified
CPT/HCPCS: 36415; 51700; 80048; 80053; 80061; 80202; 81001; 82948; 83036; 83735; 83880; 84439; 84443; 85025; 87040; 87071; 87086; 87186; 87205; 87252; 99285; J0692; J0696; J1100; J3370; J7030; J7050

== ENCOUNTER 2018-08-23 18:48 | Observation (INO) | payer MEDICARE, OTHER ==
[~2018-08-23] VITALS: Ht 167.6 cm; Wt 82.6 kg
[~2018-08-23 18:48] MED LIST: AMLODIPINE BES2.5 MG PO; ASPIR 8181 MG PO; ATORVASTATIN CA10 MG PO; CENTRUM COMPLE1 EACH PO; CETIRIZINE HCL10 MG PO; FAMOTIDINE20 MG PO; FINASTERIDE5 MG PO; FISH OIL 1,0001 EAC2 PO; GABAPENTIN100 MG PO; LEVOXYL200 MCG PO; LISINOPRIL40 MG PO; LORAZEPAM0.5 MG PO; MIRTAZAPINE15 MG PO; PENTOXIFYLLINE400 MG PO; SYMBICORT 16010.2 GM INH; TAMSULOSIN HCL0.4 MG PO
--- OUTSIDE RECORDS SUMMARY | 2018-08-23 18:51 | XMS REPORT | Continuity of Care Document ---
Author Author [facility] Interface Address Unknown Phone Unavailable Problems Problem Status Onset Date Classification Date Reported Comments Source Back pain Active Problem 03/16/2018 Bertrand Bonds Medications Medication Details Route Status Patient Instructions Ordering Provider Order Date Source Cyclobenzaprine HCl 1 tablet as needed Orally Active 10 MG Orally qhs Judi 12/07/2017 Bertrand Bonds Aspirin 1 tablet Orally Active 81 MG Orally Once a day Judi Bertrand Bonds Centrum Silver Ultra Mens as directed Orally Active - Orally Judi Bertrand Bonds Tamsulosin HCl 1 capsule Orally Active 0.4 MG Orally Once a day Judi Bertrand Bonds Symbicort 2 puffs Inhalation Active 160-4.5 MCG/ACT Inhalation Twice a day Judi Bertrand Bonds Lisinopril 1 tablet Orally Active 40 MG Orally Once a day Judi Bertrand Bonds Atorvastatin Calcium 1 tablet Orally Active 10 MG Orally Once a day Judi Bertrand Bonds Pentoxifylline 1 tablet with meals Orally Active 400 MG Orally Twice a day Judi Bertrand Bonds Clopidogrel Bisulfate 1 tablet Orally Active 75 MG Orally Once a day Judi Bertrand Bonds Breo Ellipta 1 puff Inhalation Active 100-25 MCG/INH Inhalation Once a day Judi Bertrand Bonds ProAir HFA 2 puffs as needed Inhalation Active 108 (90 Base) MCG/ACT Inhalation every 4 hrs Judi Bertrand Bonds Baclofen 1 tablet with food or milk Orally Active 10 MG Orally Three times a day Judi Bertrand Bonds Gabapentin 1 tablet Orally Active 100 MG Orally 1 tab in am, 1 in pm and 2 tabs qhs Judi Bertrand Bonds Cetirizine HCl 1 tablet Orally Active 10 MG Orally Once a day Judi Bertrand Bonds Amlodipine Besylate 1 tablet Orally Active 2.5 MG Orally Once a day Judi Bertrand Bonds Famotidine 1 tablet Orally Active 40 MG Orally Once a day Judi Bertrand Bonds Finasteride 1 tablet Orally Active 5 MG Orally Once a day Judi Bertrand Bonds Acetaminophen-Codeine 1 tablet as needed Orally Active 300-30 MG Orally every 6 hrs Judi Bertrand Bonds Allergies, Adverse Reactions, Alerts Substance Category Reaction Severity Reaction type Status Date Reported Comments Source penicillin Adverse Reaction anaphylaxis Adverse Reaction Active 12/07/2017 Bertrand Bonds Immunizations Immunization Date Given Site Status Last Updated Comments Source Results Order Name Results Value Reference Range Date Interpretation Comments Source Vital Signs Vital Sign Value Date Comments Source Weight 178 12/07/2017 Bertrand Bonds Height 64 12/07/2017 Bertrand Bonds Temperature Oral (F) 97.3 F 12/07/2017 Bertrand Bonds Heart Rate 76 12/07/2017 Bertrand Bonds Diastolic (mm Hg) 60 12/07/2017 Bertrand Bonds Systolic (mm Hg) 122 12/07/2017 Bertrand Bonds Encounters Location Location Details Encounter Type Encounter Number Reason For Visit Attending Provider ADM Date DC Date Status Source Procedures Procedure Code Date Perfomer Comments Source
[2018-08-23 20:05] LABS: BASOPHILS % 0.3 % (0.0-1.0); EOSINOPHILS # (AUTO) 0.1 (0.0-0.4); HEMATOCRIT 27.1 % (38.2-49.6); HEMOGLOBIN 8.8 g/dL (14.0-18.0); LYMPHOCYTES # (AUTO) 1.2 (1.0-3.2); LYMPHOCYTES % 16.7 % (18.0-39.1); MEAN CORPUSCULAR HEMOGLOBIN 32.5 pg (28-32); MEAN CORPUSCULAR HGB CONC 32.5 g/dL (31-35); MONOCYTES # (AUTO) 0.5 (0.2-0.8); MONOCYTES % 6.8 % (4.4-11.3); NEUTROPHILS % 72.3 % (38.7-80.0); PLATELET COUNT 333 x10e3/uL (140-360); RED BLOOD COUNT 2.71 x10e6/uL (4.3-5.7); RED CELL DISTRIBUTION WIDTH 14.3 % (11.7-14.4)
[2018-08-23 20:15] LABS: INR 1.07; PROTHROMBIN TIME 14.9 seconds (11.9-14.5)
[2018-08-23 20:16] LABS: PARTIAL THROMBOPLASTIN TIME 37.7 seconds (23.8-35.5)
[2018-08-23 20:25] LABS: ALANINE AMINOTRANSFERASE 63 IU/L (0-55); ALBUMIN 3.1 g/dL (3.5-5.0); ALBUMIN/GLOBULIN RATIO 0.8 (0.8-2.0); ALKALINE PHOSPHATASE 224 IU/L (40-150); ANION GAP 14.5 mmol/L (8-16); BLOOD UREA NITROGEN 20 mg/dL (7-26); BUN/CREATININE RATIO 19 (6-25); CALCIUM 9.2 mg/dL (8.4-10.2); CARBON DIOXIDE 25 mmol/L (22-29); CHLORIDE 96 mmol/L (98-107); CREATININE, SERUM 1.06 mg/dL (0.72-1.25); EST GLOMERULAR FILTRATION RATE > 60 ML/MIN (60-); GLUCOSE 117 mg/dL (74-118); POTASSIUM 4.5 mmol/L (3.5-5.1); SODIUM 131 mmol/L (136-145)
[2018-08-23 21:11] LABS: HYPOCHROMASIA MODERATE; LYMPHOCYTES % (MANUAL) 25 % (19-48); MONOCYTES % (MANUAL) 4 % (3.4-9.0); NEUTROPHILS % (MANUAL) 69 % (40-74); PLATELET MORPHOLOGY COMMENT NORMAL; PROMYELOCYTES % (MANUAL) 1 % (0-0); RBC MORPHOLOGY COMMENT NORMAL
[2018-08-23 21:12] LABS: PLATELET ESTIMATE ADEQUATE
[2018-08-23] MEDS ORDERED: KETOROLAC TROMETHAMINE 60 MG/2 ML VIAL IM ONE (21:30)
[2018-08-23] MEDS ORDERED: HYDROCODONE/APAP 10MG-325MG TAB PO ONE (21:30)
[2018-08-23] MEDS ORDERED: ONDANSETRON HCL INJ 2 MG/ML VIAL IV PRN (21:45)
[2018-08-23] MEDS ORDERED: SODIUM CHLORIDE FLUSH 10 ML SYR INJ PRN (21:45)
[2018-08-23] MEDS ORDERED: LEVOTHYROXINE25 MCG PO (23:25)
[2018-08-23] MEDS ORDERED: FERROUS SULFAT325 M1 PO (23:25)
[2018-08-23] MEDS ORDERED: ADVAIR HFA 115-12 GM INH (23:25)
[2018-08-23] MEDS ORDERED: ENOXAPARIN40 MG/0.4 SC (23:25)
[2018-08-23] MEDS ORDERED: PLAVIX75 MG PO (23:25)
[2018-08-23] MEDS ORDERED: LORAZEPAM 0.5 MG TAB PO PRN (23:30)
[2018-08-23 23:35] LABS: FERRITIN 586.12 ng/mL (21.81-274.66)
[2018-08-24 01:30] VITALS: BP 136/63
[2018-08-24 01:39] VITALS: BP 136/63
[2018-08-24 04:00] VITALS: BP 131/79
[2018-08-24] MEDS ORDERED: LEVOTHYROXINE SODIUM 25 MCG TABLET PO SCH (06:00)
[2018-08-24 06:42] LABS: BASOPHILS % 0.3 % (0.0-1.0); EOSINOPHILS # (AUTO) 0.1 (0.0-0.4); EOSINOPHILS % 1.5 % (0.0-6.0); HEMATOCRIT 24.4 % (38.2-49.6); LYMPHOCYTES # (AUTO) 1.1 (1.0-3.2); LYMPHOCYTES % 17.6 % (18.0-39.1); MEAN CORPUSCULAR HEMOGLOBIN 32.4 pg (28-32); MEAN CORPUSCULAR HGB CONC 32.8 g/dL (31-35); MEAN CORPUSCULAR VOLUME 98.8 fL (81-99); MONOCYTES # (AUTO) 0.5 (0.2-0.8); MONOCYTES % 7.7 % (4.4-11.3); NEUTROPHILS # (AUTO) 4.2 (2.1-6.9); NEUTROPHILS % 70.4 % (38.7-80.0); PLATELET COUNT 307 x10e3/uL (140-360); RED BLOOD COUNT 2.47 x10e6/uL (4.3-5.7); RED CELL DISTRIBUTION WIDTH 14.3 % (11.7-14.4)
[2018-08-24 06:58] LABS: AMYLASE 88 U/L (25-125); LIPASE 26 U/L (8-78)
[2018-08-24 08:30] VITALS: BP 110/53
[2018-08-24 09:00] VITALS: BP 110/53
[2018-08-24] MEDS ORDERED: NON-FORMULARY MEDICATION (Amlodipine Besylate 1 TAB) PO SCH (09:00)
[2018-08-24] MEDS ORDERED: MULTIVITAMINS/MINERALS TAB PO SCH (09:00)
[2018-08-24] MEDS ORDERED: AMLODIPINE BESYLATE 5 MG TAB PO SCH (09:00)
[2018-08-24] MEDS ORDERED: LORATADINE 10 MG TAB PO SCH (09:00)
[2018-08-24] MEDS ORDERED: FINASTERIDE 5 MG TAB PO SCH (09:00)
[2018-08-24] MEDS ORDERED: TAMSULOSIN HCL 0.4 MG CAP PO SCH (09:00)
[2018-08-24] MEDS: FERROUS SULFATE 325 MG TAB PO SCH ×2 (09:57→17:46)
[2018-08-24] MEDS: FAMOTIDINE 20 MG TAB PO SCH ×2 (09:58→17:46)
[2018-08-24] MEDS: PENTOXIFYLLINE 400 MG TAB CR PO SCH ×2 (09:58→17:46)
[2018-08-24] MEDS: OMEGA 3 POLYUNSAT FATTY ACIDS 1000 MG SOFTGEL PO SCH ×2 (09:58→17:46)
--- NOTE | 2018-08-24 10:39 | NUR ---
CASE MANAGEMENT INITIAL ASSESSMENT Instrument Technician to bedside to discuss plan of care with patient/family. CM/SW role and care transitions discussed. Anticipated discharge plan discussed along with duration of care. CM/SW discussed patients right to make decisions in care. CM/SW work hours given. Patient lives: WITH FAMILY IN 1 STORY HOUSE Admit/Transfer: VIA ED FROM HOME POA/Emergency contact: BRENTON MAZARIEGOS [phone] OR JALEN [phone] Current/Previous Home Health: [facility] HAS SET UP TO VISIT AT HOME WHEN NOT AT [facility] PCP/Follow-up Care: ARNALDO DEUARDO [phone] Current/Previous DME: [facility] AND [facility] IN ONE AT HOME Other Services: CURRENTLY AT [facility] AND WILL RETURN THERE Employment Status: DISABLED Areas of Concerns: [employer] Referral Needs: SEND CLINICALS PRIOR TO RETURN Education Needs: NONE IMM/KIRKLAND given and signed (if applicable): KIRKLAND Goal for discharge: RETURN TO [facility] CM/SW left business card at the bedside with contact information. Name and number was also written on the patients whiteboard. Patient verbalized understanding of discussion. CM will follow-up with ongoing discharge and transition of care needs.
[2018-08-24 12:40] VITALS: BP 122/60
--- NOTE | 2018-08-24 17:35 | History and Physical ---
SHORTSTAY SUMMARY PRIMARY CARE PROVIDER: Dr. Juan Antonio Mace. He has been under our care at the [facility] after a recent knee replacement. ADMITTING DIAGNOSES 1. Anemia. 2. Hypertension complicated by coronary artery disease. 3. Recent left total knee replacement. DISCHARGE DIAGNOSES 1. Anemia being stable with no evidence of active bleeding. 2. Hypertension complicated by coronary artery disease. 3. Recent left total knee replacement. Patient discharged back to long-term. BRIEF HISTORY: Mr. Enamorado is an 83-year-old gentleman who was sent from the long-term because he was bleeding from a Lovenox injection site. The patient had a left total knee replacement a couple of weeks ago, was admitted to the [facility]. He was on aspirin, Plavix and was started on Lovenox for DVT prophylaxis. He had a Lovenox injection and was bleeding from the site for several hours and was sent to the ER for evaluation. He was found in the ER to have a hemoglobin of 8.8. It was noted that his last hemoglobin was 8.4 a couple of days ago at the long-term. We decided to admit the patient overnight, monitor his hemoglobin, hematocrit and the bleeding site and probably send back to long-term in the a.m. REVIEW OF SYSTEMS: He denies chest pain or palpitations. He denies shortness of breath. He denies abdominal pain, nausea, vomiting or melena. He denies dysuria or flank pain. He rash or pruritus. He is recovering well from his left total knee replacement. PAST MEDICAL HISTORY: Significant for hypertension, coronary artery disease with previous [place], hyperlipidemia, benign prostatic hypertrophy, GERD. He denies any history of diabetes. He has a history of a recent left total knee replacement. He has had previous coronary stents and a carotid endarterectomy. MEDICATIONS: His regular medications include Norvasc 2.5 mg daily, Zyrtec 10 mg daily, Pepcid 40 mg twice daily before meals, iron sulfate 325 mg 3 times a day, Proscar 5 mg daily, levothyroxine 25 mcg daily, lorazepam as needed, multivitamin daily, omega fish oil daily, pentoxifylline 400 mg twice daily, Flomax 0.4 mg daily, lisinopril 40 mg daily, Advair Diskus twice daily, Plavix 75 mg daily, Lipitor 10 mg at bedtime, and aspirin 81 mg daily. ALLERGIES: PATIENT HAS A STATED ALLERGY TO PROMETHAZINE AND PENICILLIN. FAMILY HISTORY: Significant for hypertension. SOCIAL HISTORY: The patient is , speaks only [place]. He does not smoke, drink, or use illegal drugs. Currently living in a half-way facility after a left total knee replacement. PHYSICAL EXAM PSYCHIATRIC: He is alert and oriented x3 with normal mood and affect. CONSTITUTIONAL: He has a normal body habitus, is in no acute distress. VITAL SIGNS: Blood pressure 122/60, pulse 63 and regular, respiratory rate 18, O2 sat 99% on room air, temperature 96.7. HEENT: His head is atraumatic. His eyes are anicteric with clear conjunctiva. Ears and nares without erythema or discharge. Oropharynx is clear. NECK: Is supple with no masses or thyromegaly. LYMPHATIC SYSTEM: He has no palpable cervical, axillary or inguinal adenopathy. CARDIOVASCULAR: His heart has a regular rate and rhythm without murmur or extra heart sounds. He has no carotid bruit. He has no peripheral edema. He has palpable dorsal pedal pulses. RESPIRATORY: Lungs are clear to auscultation and percussion with normal respiratory effort. GASTROINTESTINAL: His abdomen is soft without organomegaly, masses, or tenderness. He has normal bowel sounds present. CUTANEOUS: His skin is warm and dry to touch with no rash or skin breakdown. MUSCULOSKELETAL: His joints are in normal alignment without erythema or swelling. He has no calf tenderness. NEUROLOGIC: Exam is nonfocal with intact cranial nerves and no motor or sensory deficits. DIAGNOSTIC STUDIES: Initial CBC showed a white count of 6.9 with a normal differential, hemoglobin 8.8, hematocrit 27.1, platelet count 333,000. After hydration overnight, his CBC shows a white count 5.9 with a normal differential, hemoglobin 8.0, hematocrit 24.4, platelet count 307,000. His chemistry shows normal electrolytes, CO2 is 25, creatinine 1.06, BUN 20 for a normal GFR, glucose is 117. Transaminases bilirubin and alk phos are reasonably normal. His ALT is 63, alk phos 224, total bilirubin 1.1. Again, the patient recently had a left total knee replacement. His iron level is 42, percent saturation is 18 and transferrin is 163, all of which are low. IMPRESSIONS AND PLANS 1. Anemia due to chronic disease. The patient's last hemoglobin 8.4, it was 8.8 and currently 8.0. The patient shows no sign of active bleeding. The Lovenox site is no longer bleeding. So his anemia is stable probably since his knee surgery. 2. Hypertension with coronary artery disease. It is well controlled. Will continue his current medications. 3. Recent left total knee replacement. The patient will continue his physical therapy/occupational therapy at the long-term. HOSPITAL COURSE: The patient was admitted to the floor overnight for observation. His H and H did not change significantly. His Lovenox site stopped bleeding and the patient was discharged back to the long-term to continue his physical therapy and rehab. He can resume all of his home meds, resume a regular diet and activity as tolerated, and follow up with his PCP after he is discharged from the long-term. Job#: [id number] PADMAJA
--- NOTE | 2018-08-24 19:38 | NUR ---
iv catheter DC'd at this time. daughter instructed to apply pressure to cathetrer site. day shift nurse miesha calling report to [facility] at this time. ambulance was alreayd been called. no other needs at this time.
--- NOTE | 2018-08-24 19:43 | NUR ---
PT TO DC AND RETURN TO [facility]. REPORT CALLED TO [facility]. PENDING EMS TRANSFER. PT AND UPDATED, VS STABLE.
--- NOTE | 2018-08-24 20:35 | NUR ---
PT LEAVING UNIT VIA EMS. NO NEEDS AT THIS TIME. FAMILY MEMBERS AT BEDSIDE. ALL PT BELONGSINGS TAKEN BY FAMILY MEMBERS.
== END 2018-08-24 20:35 ==
LOC: ER 18:48 → ERHOLD 21:47 → IMCU 08-24 01:17
PROVIDERS: ADMIT Internal Medicine; ATTEND Internal Medicine
DX: L76.22 Postprocedural hemorrhage of skin and subcutaneous tissue following other procedure (principal); D50.0 Iron deficiency anemia secondary to blood loss (chronic); Z88.0 Allergy status to penicillin; Z88.8 Allergy status to other drugs, medicaments and biological substances; Z96.652 Presence of left artificial knee joint; I25.10 Atherosclerotic heart disease of native coronary artery without angina pectoris; I11.9 Hypertensive heart disease without heart failure; Z79.01 Long term (current) use of anticoagulants; I25.2 Old myocardial infarction; Z95.5 Presence of coronary angioplasty implant and graft; Z82.49 Family history of ischemic heart disease and other diseases of the circulatory system; Y84.8 Other medical procedures as the cause of abnormal reaction of the patient, or of later complication, without mention of misadventure at the time of the procedure; Y92.129 Unspecified place in nursing home as the place of occurrence of the external cause
CPT/HCPCS: 36415 ×2; 80053; 82150; 82728; 83540; 83690; 84466; 85025 ×2; 85610; 85730; 99284; G0378 ×2